=== PATIENT | female | born 1955 ===

== ENCOUNTER 2017-02-02 08:18 | Inpatient (IN) | payer BC ==
--- NOTE | 2017-01-21 16:09 | HP ---
ADMISSION HISTORY AND PHYSICAL: DATE OF ADMISSION: 02/02/17. ATTENDING PROVIDER: Josh Fraire MD (DICTATED BY MAYDA DONNELLY) CHIEF COMPLAINT: Iron deficiency anemia and findings of colonic mass at the hepatic flexure. HISTORY OF PRESENT ILLNESS: Ms. Barry is a pleasant 61-year-old female who was referred to our practice by Dr. Jesus Andres for evaluation of colonic mass. Apparently the patient was found earlier this year to have iron deficiency anemia on a routine primary care visit. She had some Hemoccult blood tested and she was sent for GI evaluation by upper endoscopy and colonoscopy that was performed by Dr. Andres. The patient was found to have a colonic mass at the hepatic flexure with biopsies consistent tubulovillous adenoma. She went on and had a CT scan of the abdomen and pelvis that demonstrated at sessile mass suspicious for malignancy at the right colon, but no evidence of liver lesions was noted. Based on the size of her mass and the location, surgical consultation was warranted to evaluate for possible colon resection. Given her iron deficiency anemia, the patient had 2 iron infusions in the past of couple of weeks, back in mid December. She has been maintained on oral iron supplements since then. She has done relatively well after that. Denies any light-headedness, dizziness, chest pain, or shortness of breath. She has been active and normal back to her usual daily life routine. Given the findings of her colonoscopy she returned to the office to discuss a surgical intervention, given the size of her tubulovillous adenoma and the location at the hepatic flexure. The patient herself denies any nausea, vomiting, changes in the bowel habits, melena, or bleeding per rectum. She denies any recent illness or any other associated symptoms. She was seen in the office today for a preoperative visit and to discuss her upcoming surgery. PAST MEDICAL HISTORY: Essentially unremarkable. She has been relatively healthy female except for the recent diagnoses of iron deficiency anemia due to her colonic mass. She has history of anxiety and depression on occasion, but denies any history of heart, liver, lung, or kidney disease. PAST SURGICAL HISTORY: Significant for a left shoulder arthroscopy back in 2012. CURRENT MEDICATIONS: Her medications at home include a multivitamin women 1 tablet every day as well as iron 325 mg once daily. ALLERGIES: She has no known drug allergies. FAMILY HISTORY: She denies any family history of colorectal malignancies. SOCIAL HISTORY: The patient continues to smoke on Average 10 to 15 cigarettes per day. She drinks 2 alcohol beverages per day. She denies any illicit drug use. REVIEW OF SYSTEMS: See HPI, otherwise negative. She denies any headache, dizziness, lightheadedness or syncope. No cough, wheezes, chest pain, or shortness of breath. She denies any back pain, flank pain, dysuria, hematuria, or history of kidney stones. No nausea, vomiting, changes in bowel habit, melena, or bleeding per rectum. No fever, chills, or recent weight loss. PHYSICAL EXAMINATION GENERAL: She is a pleasant, healthy appearing, 61-year-old female in no acute distress or discomfort. VITAL SIGNS: Her vitals today revealed blood pressure of 136/80, pulse of 72, respirations of 16, and temperature of 97.1. She is 5 feet 3 inches, weighing 147 pounds with BMI of 26. HEENT: Sclerae anicteric. PERRLA. EOMs intact. Oropharynx is pink and moist with no exudate. An upper denture is noted and appears to be secure. NECK: Supple. Trachea midline. No cervical adenopathy, thyromegaly, or JVD. LUNGS: Clear to auscultation bilaterally. No rales, wheezing, or rhonchi noted. There is mild decreased breath sounds at the base bilaterally. HEART: Regular rate and rhythm. Normal S1 and S2 without rubs, murmurs, or gallops. BACK: With normal curvature. No CVA tenderness. ABDOMEN: Soft, nontender, and nondistended. No hernias, masses, or hepatosplenomegaly. There is no guarding, rigidity, or rebound tenderness noted. Guy sign was negative. EXTREMITIES: Without cyanosis, clubbing, or edema. RECTAL: Deferred at this time. NEUROLOGIC: Grossly intact. IMPRESSION: A 61-year-old female with known history of iron deficiency anemia with findings of a sessile colonic mass at the hepatic flexure with tubulovillous adenoma noted who was seen in the office today to discuss colon resection. PLAN: I went on and discussed with the patient the surgical options that we have for her today. Dr. Fraire also was present in the office and answered patient's questions regarding surgery and recovery time. We discussed with her proceeding with laparoscopic right hemicolectomy to be performed in 2 weeks. The rationale indications, risks, and benefits of surgery were discussed with her today. Risks include, but not limited to infection, bleeding, or injury to adjacent structures. She seems to be well informed and understood the risks involved. Given her long standing history of smoking, we will obtain a preoperative chest x-ray along with baseline blood work as well as an EKG unless she had one done in the last 6 months. She is otherwise a relatively healthy female. We will plan on seeing her in the office during the postoperative period. BAHGAT MAYDA SERNA CC: Dr. Jesus Andres; Dr. Tone Rico.* [id number]/[facility] #: [id number] MTDD
[~2017-02-02 08:18] MED LIST: Buffered Lidocaine 1% SYR 3ML* 3 ML/SYR SYRINGE INTRADERM ONE; Famotidine IV* 10 MG/ML 2 ML (20 mg) IV ONE; Morphine INJ* 2 MG/ML 1 ML SYRINGE IV PRN; PROCHLORPERAZINE INJ 5 MG/ML 2 ML VIAL IV PRN; Scopolamine 1.5 mg* PATCH TRANSDERM ONE
[2017-02-02] MEDS ORDERED: Scopolamine 1.5 mg* PATCH ONE (08:37)
[2017-02-02] MEDS ORDERED: Famotidine IV* 10 MG/ML 2 ML (20 mg) ONE (08:37)
[2017-02-02] MEDS ORDERED: ceFOXitin 2 GM IVPREMIX* 2 GM/50 ML BAG ONE (08:37)
[2017-02-02] MEDS ORDERED: Midazolam* 1 MG/ML 5 ML VIAL (5 MG) ONE (08:41)
[2017-02-02] MEDS ORDERED: fentaNYL* 50 MCG/ML 5 ML VIAL (250 MCG VIAL) ONE (08:41)
[2017-02-02] MEDS ORDERED: KETAMINE HCL* 50 MG/ML 10 ML VIAL ONE (08:41)
[2017-02-02] MEDS ORDERED: Atracurium* 10 MG/ML 10 ML VIAL ONE (08:41)
[2017-02-02] MEDS ORDERED: Bupivacaine 0.5% W/EPI SDV* 30 ML VIAL ONE (10:37)
[2017-02-02] MEDS ORDERED: PROCHLORPERAZINE INJ 5 MG/ML 2 ML VIAL ONE (11:32)
[2017-02-02] MEDS ORDERED: Glycopyrrolate IV* 0.2 MG/ML 1 ML VIAL ONE (11:32)
[2017-02-02] MEDS ORDERED: Dexamethasone IV* 4 MG/ML 1 ML (4 MG) ONE (11:32)
[2017-02-02] MEDS ORDERED: Neostigmine Methylsulfate* 2 MG/2 ML SYRINGE ONE (11:32)
[2017-02-02] MEDS ORDERED: Propofol* 10 MG/ML 20 ML BTL IV PUSH ONE (11:32)
[2017-02-02] MEDS ORDERED: Ondansetron INJ* 2 MG/ML VIAL ONE (11:32)
[2017-02-02] MEDS ORDERED: EPHEDrine (Pressors)* 50 MG/ML VIAL ONE (11:32)
[2017-02-02] MEDS ORDERED: Lidocaine 2% PF * 5 ML VIAL ONE (11:32)
[2017-02-02] MEDS ORDERED: Morphine INJ* 10 MG/ML 1 ML SYRINGE ONE ×2 (12:27→13:50)
[2017-02-02] MEDS ORDERED: Ketorolac INJ* 30 MG/ML 1 ML VIAL ONE (13:24)
[2017-02-02] MEDS ORDERED: Ondansetron INJ* 2 MG/ML VIAL IV PRN (13:34)
[2017-02-02] MEDS ORDERED: Docusate CAP* 100 MG PO PRN (13:34)
[2017-02-02] MEDS ORDERED: Acetaminophen TAB* 325 MG PO PRN (13:34)
--- NOTE | 2017-02-02 13:46 | PN ---
Progress Note - Progress Note Note: Brief surgery note: Pre-op: Anemia, Colonic mass at hepatic flexure Post-op: same Procedure: Laparoscopic right hemicolectomy Surgeon: Dr. Fraire Air Marshal: Devora Anderson Chelsie: KAILYN EBL: 50 cc Fluids: 3,000 cc LR Catheter: Robles to gravity intra-op, d/c'ed at PACU Drains: None Specimen: Right colon Findings: See dictated op note
[2017-02-02] MEDS ORDERED: fentaNYL* 50 MCG/ML 2 ML VIAL (100 MCG VIAL) ONE (13:50)
[2017-02-02] MEDS: fentaNYL* 50 MCG/ML 2 ML VIAL (100 MCG VIAL) IV PRN ×3 (13:51→14:42)
[2017-02-02] MEDS ORDERED: Morphine PCA ADULT* 5 MG/ML 30 ML PCA SCH (14:00)
[2017-02-02] MEDS: HYDROmorphone* 1 MG/ML 1 ML SYR IV SLOW PU PRN (17:58)
--- NOTE | 2017-02-02 23:34 | OP ---
DATE OF OPERATION: 02/02/17 - ROOM #340 DATE OF : 57 SURGEON: Josh Fraire MD MANAGER DISH: MAYDA Garcia ANESTHESIOLOGIST: Efrian Faust MD ANESTHESIA: General endotracheal. PRE-OP DIAGNOSIS: Right colon neoplasm. POST-OP DIAGNOSIS: Right colon neoplasm. OPERATIVE PROCEDURE: Laparoscopic-assisted right hemicolectomy. ESTIMATED BLOOD LOSS: Less than 50 mL. IV FLUIDS: 3 L of crystalloid. SPECIMEN: Right colon. DRAINS: None. COMPLICATIONS: None. COUNTS: Instrument, needle, and sponge counts were correct. DESCRIPTION OF PROCEDURE: The patient was brought to the operating room and placed on the table supine. Sequential compression devices were placed on both lower extremities. General anesthesia was administered. Robles catheter was placed. She was positioned and padded appropriately. She was prepped and draped in the usual sterile fashion. She received appropriate antibiotics and then time-out was performed. Local anesthetic was infiltrated into the skin and soft tissue prior to making each incision. Entry to the abdomen was through an infraumbilical vertical incision using an open technique. After accessing the peritoneal cavity, a 12- mm trocar was placed and carbon dioxide was insufflated to a pressure of 15 mmHg. Under direct visualization, 5 mm trocars were placed suprapubic, midline , left upper quadrant and also in the subxiphoid position. A 5-mm 30-degree angled laparoscope was used for the case and mobilization proceeded first with elevating the omentum off the transverse colon in order to be able to identify the area of tattooing, which was in the proximal transverse colon between the hepatic flexure and the middle colic vessels. The mobilization proceeded with division of the gastrocolic ligament starting at the mid transverse colon and developing the plane proximally taking down the hepatic flexure with identification and preservation of the duodenum. The mobilization also proceeded from the terminal ileum proximally, freeing attachments of the terminal ileum to the retroperitoneum and then dividing the white line of Toldt extending upward and slowly mobilizing the right colon to the midline, identifying and preserving the right ureter and gonadal vessels. After the mobilization was completed, the ileocolic vessels were identified, skeletonized and then divided with the EndoGIA stapler with a santo cartridge. Subsequently, a mini laparotomy was made periumbilically and the right colon was delivered. The bowel was divided proximally and distally with the LUIS ALBERTO stapler with the vessels to the right colon being divided between Lashae clamps, ligated with 2-0 Polysorb suture ligature and tie before the bowel division was completed. After the specimen was delivered, the of the bowel was restored with ileocolic anastomosis using a LUIS ALBERTO-80 stapler and a TA-60 blue stapler to complete the anastomosis. The crotch of the anastomosis was reinforced with 3- 0 silk and also the anastomotic lines were oversewn with 3-0 silk as well and then the mesenteric defect was closed with 3-0 silk in interrupted figure-of- eight fashion. This was returned to its anatomic position and then the midline wound was closed with #1 Polysorb in interrupted [id number] fashion to approximate the fascia. Wound was irrigated and skin was closed with echo. The dressings were applied. The patient tolerated the procedure well, was extubated and transferred to recovery room in stable condition. CC: Tone Rico MD; Jesus Andres MD* [id number]/[facility] #: [id number] MTDD
[2017-02-03] MEDS: Heparin VIAL(*) 5000 UNITS/ML VIAL (FIVE THOUSAND) SUBCUT SCH ×3 (06:02→21:32)
[2017-02-03] MEDS: Scopolomine PATCH Remove* 1 NOTE MISC PATCH OFF ONE (06:04)
[2017-02-03 06:44] LABS: Hematocrit 36 % (35-47); Hemoglobin 11.5 g/dl (12.0-16.0); Mean Corpuscular HGB Conc 32 g/dl (31-36); Mean Corpuscular Hemoglobin 25 pg (27-31); Mean Corpuscular Volume 77 fL (80-97); Mean Platelet Volume 9 um3 (7.4-10.4); White Blood Count 9.1 10^3/ul (3.5-10.8)
[2017-02-03 06:46] LABS: Comments Flag Yes
[2017-02-03 06:47] LABS: Red Cell Distribution Width 33 % (10.5-15)
[2017-02-03 06:55] LABS: BUN/Creatinine Ratio 10.9 (8-20); EGFR African American 121.7 (>60); EGFR Non-African American 94.7 (>60)
[2017-02-03] MEDS: oxyCODONE/Acetamin 5/325 MG* TAB PO PRN ×3 (06:58→17:57)
--- NOTE | 2017-02-03 10:32 | PN ---
Progress Note - Progress Note Note: Surgery Progress: S: POD #1. Doing quite well. Pain controlled. No N/V. Asking to eat. No flatus or BM. Voiding well. Ambulating. O: Vital Signs - 8 hr 02/03/17 02/03/17 02/03/17 02:47 06:58 07:25 Temperature 97.6 F Pulse Rate 56 Respiratory 16 16 16 Rate Blood Pressure 118/56 (mmHg) O2 Sat by Pulse 97 97 Oximetry 02/03/17 07:29 Temperature 98.0 F Pulse Rate 65 Respiratory 16 Rate Blood Pressure 121/62 (mmHg) O2 Sat by Pulse 97 Oximetry Intake and Output Last 24 Hours 02/01/17 02/02/17 02/03/17 02/04/17 06:59 06:59 06:59 06:59 Intake Total 6451 420 Output Total 2075 Balance 4376 420 Weight 144 lb Intake: IV Fluids 4951 LR 4901 NS 50ML, Cefoxitin 2G 50 Oral 1500 420 Output: Urine 2075 Other: # Bowel Movements 0 Heart: reg Lungs: clear; sl decr BS at both bases (encouraged IS use) ABd: lap incision sites ok (dsgs clean and dry); +BS; soft; mild incisional tenderness only. A/P: s/p lap assisted R colectomy (path pend); doing well. Cont clears until bowel fct.
[2017-02-03] MEDS ORDERED: oxyCODONE/Acetamin 5/325 MG* TAB PO PRN (10:33)
[2017-02-03] MEDS: D5W 1/2 NS KCl 20 Meq 1000 ML* 1,000 ML IV SCH (10:40)
[2017-02-04] MEDS: oxyCODONE/Acetamin 5/325 MG* TAB PO PRN (00:01)
[2017-02-04] MEDS: D5W 1/2 NS KCl 20 Meq 1000 ML* 1,000 ML IV SCH (00:03)
[2017-02-04] MEDS: Heparin VIAL(*) 5000 UNITS/ML VIAL (FIVE THOUSAND) SUBCUT SCH ×3 (05:11→22:49)
[2017-02-04] MEDS ORDERED: Ketorolac INJ* 30 MG/ML 1 ML VIAL IV PUSH PRN (08:36)
--- NOTE | 2017-02-04 08:40 | PN ---
Progress Note - Progress Note Note: Surgery Progress: S: POD #2. No flatus or BM, but still would like to have more than clears. Ambulating. Voiding well. Pain managed w/ Percocet. O: Vital Signs - 8 hr 02/04/17 02/04/17 02/04/17 02:01 04:27 05:10 Temperature 97.8 F Pulse Rate 49 Respiratory 16 16 16 Rate Blood Pressure 131/73 (mmHg) O2 Sat by Pulse 97 Oximetry 02/04/17 02/04/17 02/04/17 07:10 07:31 08:00 Temperature 97.5 F Pulse Rate 53 Respiratory 16 16 16 Rate Blood Pressure 129/69 (mmHg) O2 Sat by Pulse 98 98 Oximetry Intake and Output Last 24 Hours 02/02/17 02/03/17 02/04/17 02/05/17 06:59 06:59 06:59 06:59 Intake Total 6451 5904 Output Total 2074 2049 500 Balance 4376 3854 -500 Weight 144 lb Intake: IV Fluids 4951 2104 LR 4901 2104 NS 50ML, Cefoxitin 2G 50 Oral 1500 3800 Output: Urine 2074 2049 500 Other: # Bowel Movements 0 0 Heart: reg Lungs: clear Abd: +BS; soft; nondistended; lap incisions ok; some dried blood at umbilicus. Soft; min tenderness. Extr: SCDs on. A: s/p lap R colectomy P: will try full liqs while awaiting return of bowel fct; Toradol prn.
[2017-02-04] MEDS: HYDROmorphone* 1 MG/ML 1 ML SYR IV SLOW PU PRN ×2 (15:40→19:43)
[2017-02-05] MEDS: HYDROmorphone* 1 MG/ML 1 ML SYR IV SLOW PU PRN ×2 (00:14→04:03)
[2017-02-05] MEDS: Scopolomine PATCH Remove* 1 NOTE MISC PATCH OFF ONE (04:56)
[2017-02-05] MEDS: Heparin VIAL(*) 5000 UNITS/ML VIAL (FIVE THOUSAND) SUBCUT SCH ×2 (06:01→13:54)
[2017-02-05] MEDS: oxyCODONE/Acetamin 5/325 MG* TAB PO PRN ×2 (09:02→13:53)
--- NOTE | 2017-02-05 09:49 | PN ---
Progress Note - Progress Note Note: Surgery Progress S: POD #3. Had 2 episodes of vomiting after trying full liqs yesterday. Did not eat (but continued to drink) the rest of the day. Feels better this a.m. Has had a BM. No flatus. O: Vital Signs - 8 hr 02/05/17 02/05/17 02/05/17 03:57 04:03 05:03 Temperature 98.5 F Pulse Rate 67 Respiratory 16 18 16 Rate Blood Pressure 124/67 (mmHg) O2 Sat by Pulse 97 Oximetry 02/05/17 02/05/17 07:30 09:02 Temperature 98.2 F Pulse Rate 73 Respiratory 16 18 Rate Blood Pressure 100/63 (mmHg) O2 Sat by Pulse 96 Oximetry Intake and Output Last 24 Hours 02/03/17 02/04/17 02/05/17 02/06/17 06:59 06:59 06:59 06:59 Intake Total 6451 5904 2160 Output Total 2074 2049 2200 Balance 4376 3854 -41 Weight 144 lb Intake: IV Fluids 4951 2104 950 D5W 1/2 NS 950 LR 4901 2104 NS 50ML, Cefoxitin 2G 50 Oral 1500 3800 1210 Output: Urine 2074 2049 2200 Other: Estimated Void Medium # Bowel Movements 0 0 1 Estimated Stool Amount Medium Heart: reg Lungs: clear Abd: lap incisions look good; some ecchymosis at umbilical incision. +BS; soft, no sig tenderness Path: TVA; no dysplasia A: s/p lap R colectomy, doing well P: will see how she does today w/ diet; if ok, poss d/c home later today; if not , prob 02/06
[2017-02-05 11:56] VITALS: BP 99/46
== END 2017-02-05 15:50 | disposition home or self-care (01) | DRG 221 ==
LOC: AA 08:18 → SSU 14:57
PROVIDERS: ADMIT Surgery; ATTEND Surgery
PROC: 0DTF4ZZ Resection of Right Large Intestine, Percutaneous Endoscopic Approach (ICD-10-PCS; principal; 2017-02-02 09:45)
DX: D12.2 Benign neoplasm of ascending colon (principal); F32.9 Major depressive disorder, single episode, unspecified; D12.3 Benign neoplasm of transverse colon; F41.9 Anxiety disorder, unspecified; F17.210 Nicotine dependence, cigarettes, uncomplicated; D64.9 Anemia, unspecified
CPT/HCPCS: 36415; 80048; 85025; 88309; A9270-GY; C1776; J0694; J0780; J1100; J1170; J1644; J1885; J2250; J2270; J2405; J2704; J3010